=== PATIENT | female | born 1985 ===

== ENCOUNTER 2018-01-04 07:13 | Day surgery (SDC) | payer OTHER ==
[~2018-01-04] VITALS: Ht 167.6 cm; Wt 75.3 kg
[2018-01-04] VITALS (12 sets, daily range): BP systolic 99–133; BP diastolic 63–92
[~2018-01-04 07:13] MED LIST: NKM; ceFAZolin 1gm in D5W 55ml IVPB ONE; celeBREX 200mg Cap **SURGERY PATIENTS ONLY ORAL ONE; oxyCONTIN 20mg tab ORAL ONE
--- NOTE | 2018-01-04 07:24 | Pre-Procedure Note/Attestation ---
Pre-Procedure Note/Attestation Complete Prior to Procedure Planned Procedure: right Procedure Narrative: rt shoulder scope, labral repair, resection of cyst Indications for Procedure Pre-Operative Diagnosis: rt shoulder labral tear Attestation I attest that I discussed the nature of the procedure; its benefits; risks and complications; and alternatives (and the risks and benefits of such alternatives ), prior to the procedure, with the patient (or the patient's legal security representative). I attest that, if there was a reasonable possibility of needing a blood transfusion, the patient (or the patient's legal security representative) was given the [facility] standardized written summary, pursuant to the Lencho Sabina Blood Safety Act ([place] Health and Safety Code # 1645, as amended). I attest that I re-evaluated the patient just prior to the surgery and that there has been no change in the patient's H&P, except as documented below: none Mateo Johnson MD Jan 04, 2018 07:24
[2018-01-04] MEDS ORDERED: HYDROmorphone 1mg/ml Carpuject SUBQ PRN (07:30)
[2018-01-04] MEDS ORDERED: D5 1/2NS 1,000 ML IV SCH (07:30)
[2018-01-04] MEDS ORDERED: Norco 5mg/325mg tab ORAL PRN ×2 (07:30→12:00)
[2018-01-04] MEDS ORDERED: Tylenol #3 tab (300mg/30mg) ORAL PRN (07:30)
[2018-01-04] MEDS ORDERED: Bupivacaine 0.5% Inj 30 ml vial INJ ONE (07:42)
[2018-01-04] MEDS ORDERED: EPINEPHrine 1mg/1ml Amp ONE ×2 (07:42→08:31)
[2018-01-04] MEDS ORDERED: celeBREX 200mg Cap **SURGERY PATIENTS ONLY ORAL ONE (08:18)
[2018-01-04] MEDS ORDERED: oxyCONTIN 20mg tab ORAL ONE (08:18)
[2018-01-04] MEDS ORDERED: Sodium Chloride 10ml vial INJ ONE (08:31)
[2018-01-04] MEDS ORDERED: Ropivacaine 5mg/ml Vial 30ml INJ ONE (08:31)
[2018-01-04] MEDS ORDERED: Dexamethasone 4mg/ml vial ONE (08:31)
[2018-01-04] MEDS ORDERED: Lidocaine 1% MPF 10mg/ml 5ml ONE (08:31)
--- NOTE | 2018-01-04 08:34 | Anethesia Preoperative Eval ---
Anesthesia Pre-op PMH/ROS General Date of Evaluation: Jan 04, 2018 Time of Evaluation: 10:08 Anesthesiologist: David ASA Score: ASA 2 Mallampati Score Class I : Soft palate, uvula, fauces, pillars visible Class II: Soft palate, uvula, fauces visible Class III: Soft palate, base of uvula visible Class IV: Only hard plate visible Mallampati Classification: Class I Surgeon: Elizabeth Diagnosis: R Shoulder Pain Surgical Procedure: R Shoulder Arthroscopy Anesthesia History: none Family History: no anesthesia problems Allergies: Coded Allergies: No Known Allergies (Unverified , 12/30/17) Medications: see eMAR Past Medical History Cardiovascular: Reports: HTN Endocrine: Reports: DM - Gestational Only Anesthesia Pre-op Phys. Exam Physician Exam Last Vital Signs Date Time Temp Pulse Resp B/P (MAP) Pulse Ox O2 Delivery O2 Flow Rate FiO2 01/04/18 08:10 Room Air 01/04/18 08:07 98.0 69 18 128/79 (95) 99 98.0 Constitutional: NAD Neurologic: CN 2-12 intact Cardiovascular: RRR Respiratory: CTA Gastrointestinal: S/NT/ND Airway Exam Mallampati Score: Class I MO: full ROM: full Teeth: intact Anesthesia Pre-op A/P Labs Urine Test Test 01/04/18 07:25 Urine HCG, Qualitative Negative (NEGATIVE) Risk Assessment & Plan Assessment: ASA 2 Plan: GA, SED, R Supraclavicular Block Status Change Before Surgery: No Pre-Antibiotics Dru Gram Ancef IV Given Within 1 Hr of Incision: Yes Time Given: 10:12 Mac Hernandez MD Jan 04, 2018 08:34
--- NOTE | 2018-01-04 09:00 | Immediate Post-Op Evaluation ---
Immediate Post-Op Evalulation Immediate Post-Op Evalulation Procedure: R Shoulder Arthroscopy Date of Evaluation: Jan 04, 2018 Time of Evaluation: 11:33 IV Fluids: 800 LR Blood Products: 0 Estimated Blood Loss: 10 Urinary Output: 0 Blood Pressure Systolic: 99 Blood Pressure Diastolic: 60 Pulse Rate: 77 Respiratory Rate: 16 O2 Sat by Pulse Oximetry: 100 Temperature (Fahrenheit): 99.2 Pain Score (1-10): 1 Nausea: No Vomiting: No Complications 0 Patient Status: awake, reacts, patent, extubated, none Hydration Status: adequate Dru Gram Ancef IV Given Within 1 Hr of Incision: Yes Time Given: 10:12 Mac Hernandez MD Jan 04, 2018 09:00
--- NOTE | 2018-01-04 09:01 | 48 Hour Post Anesthesia Eval ---
Post Anesthesia Evaluation Procedure: R Shoulder Arthroscopy Date of Evaluation: Jan 04, 2018 Time of Evaluation: 13:42 Blood Pressure Systolic: 121 0: 72 Pulse Rate: 73 Respiratory Rate: 18 Temperature (Fahrenheit): 98.4 O2 Sat by Pulse Oximetry: 100 Airway: patent Nausea: No Vomiting: No Pain Intensity: 1 Hydration Status: adequate Cardiopulmonary Status: Stable Mental Status/LOC: patient returned to baseline Follow-up Care/Observations: 0 Post-Anesthesia Complications: 0 Follow-up care needed: ready to discharge Mac Hernandez MD Jan 04, 2018 09:01
[2018-01-04] MEDS ORDERED: NS Irrig 4000ml IRRIG ONE ×2 (09:47→10:08)
[2018-01-04] MEDS ORDERED: Propofol 200mg/20ml IV ONE (10:08)
--- NOTE | 2018-01-04 11:16 | Brief Operative Note ---
Immediate Post Operative Note Operative Note Chief Complaint: rt shoulder pain Pre-op Diagnosis: rt shoulder labral tear Procedure: rt shoulder scope, labral repair Post-op Diagnosis: same as pre-op Findings: consistent w/pre-op dx studies Surgeon: md morena Print Shop Helper: marie woods Anesthesiologist: md jd Anesthesia: general Specimen: none Complications: none Condition: stable Fluids: ns Estimated Blood Loss: minimal Drains: none Implant(s) used?: Yes - biomet Shoshana Woods Jan 04, 2018 11:16
[2018-01-04] MEDS ORDERED: LR 1000ml 1,000 ML IVLG SCH (11:49)
[2018-01-04] MEDS ORDERED: HYDROcodone/Acetamin 7.5/325 tab ORAL PRN (12:00)
[2018-01-04] MEDS ORDERED: LORazepam Inj 2mg/ml 1ml IV PRN (12:00)
[2018-01-04] MEDS ORDERED: Labetalol 5mg/ml 20ml vial IV PRN (12:00)
[2018-01-04] MEDS ORDERED: Metoclopramide 10mg/2ml Inj IVP PRN (12:00)
[2018-01-04] MEDS ORDERED: Atropine Inj 1mg/10ml Syr IV PRN (12:00)
[2018-01-04] MEDS ORDERED: Midazolam 2mg/2ml Inj IVP PRN (12:00)
[2018-01-04] MEDS ORDERED: DiphenhydrAMINE 50mg/ml Inj IVP PRN (12:00)
[2018-01-04] MEDS ORDERED: fentaNYL 100 mcg/2 mL IV PRN (12:00)
[2018-01-04] MEDS ORDERED: Hydromorphone 0.5mg/0.5ml inj IVP PRN (12:00)
[2018-01-04] MEDS ORDERED: Ketorolac 30mg Inj IV PRN ×2 (12:00)
[2018-01-04] MEDS ORDERED: oxyCODONE HCL/Acetaminophen 5/325mg ORAL PRN (12:00)
--- NOTE | 2018-01-04 23:00 | Operative Note - Dictated ---
DATE OF OPERATION: 01/04/2018 PREOPERATIVE DIAGNOSES: 1. Right shoulder anteroinferior labral tearing. 2. Presence of paralabral cyst and anteroinferior labral tearing. POSTOPERATIVE DIAGNOSES: 1. Right shoulder 1.5 cm anteroinferior labral tear with paralabral cyst. 2. Right shoulder posterior labral tearing measuring 1 cm in the posteroinferior aspect of labrum. 3. Right shoulder subacromial bursitis without rotator cuff tear. 4. Right shoulder partial-thickness tear of the rotator cuff on the articular side measuring 25% of the articular side of rotator cuff tear. 5. Presence of paralabral cyst and anteroinferior labral tearing. PROCEDURE: 1. Right shoulder arthroscopy and extensive intra-articular shaving. 2. Right shoulder anterior labral repair (Bankart repair) using 2 Biomet 1.5 mm JuggerKnot anchors. 3. Right shoulder posterior labral repair using a single Biomet 1.5 mm JuggerKnot anchor. 4. Right shoulder subacromial bursoscopy, bursectomy, and partial release of CA ligament. 5. Debridement of the articular-sided rotator cuff tear with resection of the 25% of the articular side of rotator cuff tear without evidence of a full-thickness tear. 6. Decompression of the anteroinferior paralabral cyst. SURGEON: Mateo Johnson M.D. CAKE WINDER: Shoshana Farmer PA-C. Mental Telepathist was present during the actual operative portion of the case and was important and essential part of the operation. During the operation, the assistant men's soccer coach held and operated the arthroscopic camera for visualization, assisted by manipulating the arm to help with visualization, and helped with essential parts of the repair process as necessary such as operating surgical instruments under surgeon supervision, suture management, and wound closures. ANESTHESIOLOGIST: Dr. Hernandez. ANESTHESIA: LMA anesthesia combined with interscalene block. ESTIMATED BLOOD LOSS: Less than 20 mL. COMPLICATIONS: None. SURGICAL INDICATION: The patient is a 32-year-old female who sustained the above injury to her shoulder. The patient was treated non-operative initially, but this did not alleviate the patients symptoms. Therefore, after discussing all non-surgical and surgical options, and discussing all foreseeable risk and benefits of surgery, the patient opted for surgical treatment as described above. PATIENT POSITIONING: The patient was brought to the operating room table and was placed on the operating room table. All pressure points were well padded. General anesthesia was induced and patient was then placed in the lateral decubitus position. All pressure points were well padded again and an axillary roll was placed. The patient's shoulder was then prepped and draped in the usual sterile fashion. Time-out was performed and the appropriate preoperative antibiotic was given by the anesthesiologist. EXAMINATION OF SHOULDER UNDER ANESTHESIA: The shoulder was examined under anesthesia with all muscles well relaxed. The shoulder was forward flexed, abducted, and was placed through full range of external and internal rotation. The anterior, posterior, and inferior stability of the shoulder was checked. The exam revealed no evidence of adhesive capsulitis and no evidence of instability. PORTAL PLACEMENT: The posterior portal was established 2 cm inferior and 1 cm medial to the edge of the posterior acromion. A 1-cm skin incision was made using an #11 blade and using the blunt obturator, the cannula was gently placed through the capsule. The mid-glenoid portal was established just lateral to the coracoid process under direct visualization. Direction of the cannula was first established using a spinal needle, and subsequently, the cannula was placed through the capsule with a blunt obturator. The anterosuperior cannula was established under direct visualization off the anterolateral edge of the acromion and just anterior to the biceps tendon through the rotator interval. The direction of cannula was first established using a spinal needle, and subsequently, the cannula was placed through the capsule with a blunt obturator. DIAGNOSTIC ARTHROSCOPY: The biceps tendon was probed and pulled through the joint for visualization. It appeared normal. The biceps anchor was palpated with a probe and was visualized. The posterior labrum and axillary recess was visualized. There was a posteroinferior labral tearing which was later visualized much better through the anterior portal. The glenoid articular surface was visualized and it appeared normal. The articular surface of the rotator cuff was visualized and probed next. There was articular-sided rotator cuff tear involving 25% thickness of articular side of the rotator cuff. There was no full-thickness tear. The humeral head articular surface was then visualized. There was no evidence of articular cartilage damage. Next the anterior labrum, middle glenohumeral ligament, subscapularis tendon, and the anteroinferior glenohumeral ligament were evaluated. Subscapularis was intact. Anterior and middle glenohumeral ligaments were intact, however, the anteroinferior glenohumeral ligament and the labrum were torn measuring 1.5 cm. There was a paralabral cyst that was located in that area which could be palpated using a probe. At this point, the scope was moved to the mid-glenoid portal and the posterior structures including the posterior labrum, posterior capsule and posterior cuff were visualized. There was an evidence of posteroinferior labral tearing measuring 1 cm. The subscapularis recess was devoid of any loose bodies and the anterior capsule was well attached to the humeral neck. The middle and anteroinferior glenohumeral ligament was visualized. Again, there was evidence of anteroinferior labral tearing. OPERATIVE DEBRIDEMENTS AND REPAIR: Care was given to all partial-thickness tears and frayed structures in the shoulder joint. The frayed rotator cuff and labrum was debrided using a shaver initially through the anterior portal and subsequently through the posterior portal to complete the debridement. This allowed for smooth debridement of all affected structures and all loose fragments were removed. At this point, care was given to the anterior labral tearing. Using Liberator elevator, the labrum was mobilized. At this point, a combination of shaver and burs were placed in to decorticate the bone to a bleeding surface. At this point, two 1.5 mm JuggerKnot anchors were placed, one at 5:30 position and another one at approximately 4 o'clock position, and using suture-passing devices, the simple sutures were passed through the capsule-labral complex and were tied using SMC knot followed by 3 half-hitches. This provided excellent stability and reattachment of the glenoid labrum to the glenoid. This was probed and reprobed, and appeared to be perfect. Given the mobilization, the cyst was decompressed and the paralabral cyst was resected in this fashion. The scope was placed into the anterior portal at this point, the posterior labrum was visualized, this was mobilized using a Liberator elevator. This was a smaller tear, however, this was unstable. Therefore at this point, a 1.5 mm JuggerKnot anchor was placed posteroinferiorly and using the suture-tying instrumentation, the simple suture was passed through the capsule-labral complex and was tied using SMC knot followed by 3 half-hitches. The stability of the labrum and glenoid were checked and appeared to be perfect. The bone was decorticated prior to placing the anchor. Once this was completed, the stability of the labrum was checked circumferentially and appeared to be perfect. Three in total anchors were placed in. The paralabral cyst was decompressed in this fashion. At this point, the scope was placed in the subacromial space. There was extensive subacromial bursitis. Subacromial bursa was resected using a combination of jourdan and ArthroCare device. Once this was completed, the rotator cuff was visualized and appeared to be intact. There was no full-thickness tear. The CA ligament had some abrasions anterosuperiorly and partial release of the CA ligament was performed. No subacromial decompression was performed. CONDITION AT DISCHARGE FROM OPERATING ROOM: The skin was re-approximated and sterile dressing and sling were applied. All lap counts and instrument counts were correct. Patient tolerated the procedure well without complications and was taken to the recovery room in stable conditions. Mateo Johnson M.D. DR: Josue JOB#: [id number] CC:
== END 2018-01-04 13:35 | disposition home or self-care (01) ==
LOC: SUR 07:13
DX: S43.491A Other sprain of right shoulder joint, initial encounter (principal); M75.111 Incomplete rotator cuff tear or rupture of right shoulder, not specified as traumatic; M75.51 Bursitis of right shoulder; I10 Essential (primary) hypertension; J98.4 Other disorders of lung
CPT/HCPCS: 29826; 29827; 81025; J0171; J0690; J1100; J2250; J2405; J2704; J2795; 94003; 94150; C1713